=== PATIENT | female | born 1990 | race Caucasian/White ===

== ENCOUNTER 2018-08-26 11:17 | Inpatient (IN) ==
[2018-08-26] MEDS ORDERED: OXYTOCIN 30 UNITS/500 ML BAG IV PRN ×3 (12:22→20:13)
--- NOTE | 2018-08-26 12:29 | History & Physical Report ---
Date of Service August 26, 2018 Assessment & Plan (1) 40 weeks gestation of : fetus category one. Plan pitocin induction. arom as indicated. epidural on demand. anticipate . History of Present Illness Chief Complaint: induction Primary Care Provider: Ivan Patel, DO Patient is a 28yowf with iup at 40 5/7 weeks who presents to labor and delivery for induction of labor. Patient notes some contractions, just tightening. no lof/vb. Losing some mucous. +fm. uncomplicated. labs--A+/ab-/pap neg/ri/rprnr/hepb-/hiv-/gc/ct-/ gtt x 2 nl/panorama low risk male/gbs neg soc--no t/e/d, lives with fob Allergies Allergy/AdvReac Type Severity Reaction Status Date / Time No Known Allergies Allergy Unverified 11/26/15 11:35 Home Medications Home Medications Medication Instructions Recorded Confirmed Type Multivit/Min/Iron/Fol Ac/Pren 1 tab PO DAILY #0 tab 10/17/15 History ( Vitamin) Patient History Medical History History of varicella OB History g1--12/10, , 7#12 oz, no issues [employer] History no stds, no abnl paps Review of Systems All systems reviewed & are unremarkable except as noted in HPI & below Physical Exam Constitutional: WD/WN, vitals as above Gastrointestinal (Abdomen): soft, gravid, nt Genitourinary: cx--3/50/-2/mid/mod efm--135 with mod variability, accels to 160s, no decels toco--leydi Results & Data Vital Signs (Past 12 Hours) Vital Signs Temp Pulse Resp BP 08/26/18 12:02 36.7 C 20 08/26/18 12:01 81 122/71
[2018-08-26 12:48] LABS: Hematocrit (blood only) 33.6 % (37-47); Hemoglobin 11.3 g/dL (12.0-16.0); Mean Corpuscular Volume 85.5 fL (80-100); Mean Platelet Volume 8.6 fL (7.4-10.4); Platelet Count 215 K/uL (130-400); RDW Coefficient of Variation 13.3 % (11.5-14.5); RDW Standard Deviation 41.1 fL (36.4-46.3); Red Blood Count 3.93 M/uL (4.2-5.4); White Blood Count 13.38 K/uL (4.8-10.8)
[2018-08-26] MEDS: LACTATED RINGER'S 1,000 ML IV PRN ×2 (12:57→16:55)
[2018-08-26 13:03] LABS: Mean Corpuscular Hgb Conc 33.6 g/dL (32-36)
--- NOTE | 2018-08-26 16:32 | Labor Progress Brief Note ---
Date of Service August 26, 2018 Subjective GEtting uncomfortable Assessment & Plan (1) 40 weeks gestation of : I suspect response is from hyperstim. Once recussicitation done, fetus recovered and appearing category one at this point. Will get epidural and then reevaluate need for pitocin. Physical Exam Constitutional: WD/WN, vitals as above Genitourinary: cx--4/75/-2 arom--copious, thin, slightly green tinged toco--q1-2min, periods of hyperstim, pit was at 8 and now off efm--140s wtih mod variaiblity, + accels, +scalp stim, fse placed, during periods of hyperstim fetus did have some response with lates and resolved with d/c pit, position change, oxygen Results & Data Vital Signs (Past 12 Hours) Vital Signs Temp Pulse Resp BP 08/26/18 14:50 78 111/60 08/26/18 14:19 72 120/69 08/26/18 13:27 75 120/68 08/26/18 12:24 36.7 C 20 08/26/18 12:02 36.7 C 20 08/26/18 12:01 81 122/71
[2018-08-26] MEDS ORDERED: ePHEDrine sulfate 50 MG/ML AMP ONE (16:35)
[2018-08-26] MEDS ORDERED: BUPIVACAINE 0.25% 30 ML VIAL ONE (16:35)
[2018-08-26] MEDS ORDERED: fentaNYL citrate 100 MCG/2 ML VIAL ONE (16:36)
[2018-08-26] MEDS ORDERED: fentaNYL 2MCG/ML ROPIV 1.25MG/ML 100 ML BAG EPI ONE (16:36)
--- NOTE | 2018-08-26 16:59 | Communication Note ---
Date of Service: August 26, 2018 baby now category one with accels, contractions have spaced some. Getting epidural.
--- NOTE | 2018-08-26 17:11 | Anesthesiology Consultation ---
Date of Service August 26, 2018 Assessment & Plan Chart Review Chart Review: Patient NOT seen in Pre Admission Testing and Acceptable Risk for Labor Epidural Consults Requested none ASA ASA2 Proposed Anesthesia Anesthesia Type: Labor Epidural Risk / Benefits Reviewed With: PT / POA / Parent / Guardian, Accepts Plan and Informed Consent Obtained History Height/Weight Height: 5 ft 4 in Weight: 86.183 kg Allergies Allergy/AdvReac Type Severity Reaction Status Date / Time No Known Allergies Allergy Unverified 11/26/15 11:35 Medications Active Medications Generic Name Dose Route Start Last Admin Trade Name Freq PRN Reason Stop Dose Admin Lactated Ringer's 1,000 mls @ 125 mls/hr 08/26/18 12:22 08/26/18 16:55 Lr IV 08/28/18 12:21 125 mls/hr .Q8H PRN Administration L&D Protocol Protocol Oxytocin 30 units in 500 mls @ 0 mls/hr 08/26/18 12:23 08/26/18 16:23 Pitocin IV 08/28/18 12:22 0 units/hr .Q0M PRN 0 mls/hr Labor Induction/Augmentation Titration Protocol 0 UNITS/HR NPO Date Last Intake of Fluids: 08/26/18 Time Last Intake of Fluids: 17:42 Date Last Intake of Solids: 08/26/18 Time Last Intake of Solids: 06:00 Past Medical History Medical History History of varicella Exercise / Class Metabolic Activity III < 4 Walking/Shop/Light housework Past Anesthesia History No Family Hx of Anesthesia Complications History of PONV Hx of Motion Sickness Social History Smoking Status: Former smoker Smoking End Date: 2011 Hx Alcohol Use: No Hx Substance Use: No substance use type: does not use Review of Systems Patient denies history of abnormal bleeding or bleeding disorder. Patient denies active use of anticoagulants other than low dose aspirin. Patient denies numbness, tingling or weakness in lower extremities. Patient denies active symptoms of GERD. Physical Exam Vital Signs Last Vital Signs Temp 36.7 C 08/26/18 12:24 Pulse 80 08/26/18 17:06 Resp 20 08/26/18 12:24 BP 111/60 08/26/18 14:50 Pulse Ox 100 08/26/18 17:06 Constitutional not obese (Gravid uterus) ENMT Mouth: no TMJ abnormality and oral opening not small Thyromental Distance: > or= 3.5 Finger Breadths Mallampati Class: II Neck normal visual inspection; neck extension not limited Respiratory normal respiratory effort Auscultation: lungs clear to auscultation bilaterally Cardiovascular Rate/Rhythm: regular rate and regular rhythm Heart Sounds: no murmur Neurologic moves all extremities Motor/Sensory: no sensory deficit Psychiatric Orientation: alert and oriented x 3 Testing Laboratory Results 08/26/18 12:38
[2018-08-26] MEDS ORDERED: DiphenhydrAMINE HCL 50 MG/ML VIAL IV PRN (17:46)
[2018-08-26] MEDS ORDERED: NALOXONE HCL 1 MG in SODIUM CHLORIDE 0.9% 1000ML 1,000 ML IV PRN (17:46)
[2018-08-26] MEDS ORDERED: fentaNYL 2MCG/ML ROPIV 1.25MG/ML 100 ML BAG EPI PRN (17:46)
[2018-08-26] MEDS ORDERED: NALOXONE HCL 0.4 MG/1 ML VIAL/CARP IV PRN (17:46)
[2018-08-26] MEDS ORDERED: ePHEDrine sulfate 50 MG/ML AMP IV PRN (17:46)
[2018-08-26] MEDS ORDERED: ONDANSETRON INJ 2 MG/ML 2 ML VIAL IV PRN (17:46)
[2018-08-26] MEDS ORDERED: NALBUPHINE HCL INJ 10 MG/ML AMP IV PRN (17:46)
--- NOTE | 2018-08-26 18:40 | Labor Progress Brief Note ---
Date of Service August 26, 2018 Subjective comfortable Assessment & Plan (1) 40 weeks gestation of : fetus category one. will restart pitocin. slow titration. anticipate . Physical Exam Constitutional: WD/WN, vitals as above Genitourinary: cx--5/90/-2 toco--q2-4min efm--130s with mod variability, small accels, no decels, +scalp stim. Results & Data Vital Signs (Past 12 Hours) Vital Signs Temp Pulse Resp BP Pulse Ox 08/26/18 18:35 106 H 99/52 L 08/26/18 18:33 104 H 98/53 L 08/26/18 18:32 100 H 98 08/26/18 18:31 87 107/58 L 08/26/18 18:29 106 H 103/59 L 08/26/18 18:27 115 H 105/56 L 98 08/26/18 18:25 105 H 110/60 08/26/18 18:23 100 H 112/59 L 08/26/18 18:22 103 H 99 08/26/18 18:21 100 H 116/60 08/26/18 18:19 100 H 111/57 L 08/26/18 18:17 102 H 111/62 99 08/26/18 18:15 110 H 110/59 L 08/26/18 18:13 110 H 111/57 L 08/26/18 18:12 103 H 99 08/26/18 18:11 117 H 109/58 L 08/26/18 18:09 112 H 100/54 L 08/26/18 18:07 110 H 124/66 99 08/26/18 18:05 116 H 110/70 08/26/18 18:03 104 H 99/53 L 08/26/18 18:02 110 H 98 08/26/18 18:01 102 H 115/56 L 08/26/18 17:59 91 H 110/57 L 08/26/18 17:57 101 H 108/58 L 98 08/26/18 17:55 93 H 110/59 L 08/26/18 17:53 95 H 113/59 L 08/26/18 17:52 103 H 100 08/26/18 17:51 91 H 121/58 L 08/26/18 17:49 97 H 113/59 L 08/26/18 17:47 92 H 116/57 L 99 08/26/18 17:45 95 H 112/56 L 08/26/18 17:43 89 124/60 08/26/18 17:42 90 99 08/26/18 17:41 92 H 105/51 L 08/26/18 17:39 76 110/61 08/26/18 17:37 73 102/55 L 99 08/26/18 17:36 67 87/54 L 08/26/18 17:33 78 100/53 L 08/26/18 17:32 78 100 08/26/18 17:31 100 H 100/53 L 08/26/18 17:29 76 108/53 L 08/26/18 17:27 71 113/58 L 08/26/18 17:26 80 100 08/26/18 17:23 90 115/66 08/26/18 17:21 86 100 08/26/18 17:16 92 H 100 08/26/18 17:13 95 H 90 08/26/18 17:11 86 131/73 100 08/26/18 17:06 80 100 08/26/18 17:01 82 100 08/26/18 16:56 81 100 08/26/18 16:51 72 100 08/26/18 16:46 76 100 08/26/18 16:41 77 100 08/26/18 16:36 74 100 08/26/18 16:31 74 100 08/26/18 14:50 78 111/60 08/26/18 14:19 72 120/69 08/26/18 13:27 75 120/68 08/26/18 12:24 36.7 C 20 08/26/18 12:02 36.7 C 20 08/26/18 12:01 81 122/71
[2018-08-26 19:58] VITALS: O2SAT 100
[2018-08-26] MEDS ORDERED: OXYCODONE/ACETAMINOPHEN 5mg/325mg TAB PO PRN (20:13)
--- NOTE | 2018-08-26 20:13 | Anesthesia Procedure Note ---
Date of Service August 26, 2018 Anesthesia Post Epidural Note Vital Signs Vital Signs: Temp Pulse Resp BP Pulse Ox 36.9 C 102 H 18 128/58 L 100 08/26/18 19:05 08/26/18 20:08 08/26/18 19:05 08/26/18 20:08 08/26/18 20:02 Notes Mental Status: alert / awake / arousable and participated in evaluation Nausea / Vomiting: adequately controlled Pain: adequately controlled Airway Patency, RR, SpO2: stable & adequate BP & HR: stable & adequate Hydration State: stable & adequate Neuraxial Anesthesia: was administered and sensory block is resolving Anesthetic Complications: no major complications apparent and Pt Satisfied with anesthetic care Epidural: Removed without complications and With tip intact
[2018-08-26] MEDS ORDERED: DIPHTHERIA/TETANUS/PERTUSSIS 0.5 ML SYR/VIAL IM ONE (20:27)
[2018-08-26] MEDS ORDERED: BENZOCAINE 20% AER SPR 82.5 GM CAN EXT PRN (20:27)
[2018-08-26] MEDS ORDERED: SUPERCREAM 0.870% 15 GM JAR EXT PRN (20:27)
[2018-08-26] MEDS ORDERED: HYDROCORTISONE ACETATE 25 MG SUPP PR PRN (20:27)
[2018-08-26] MEDS ORDERED: BISACODYL 10 MG SUPP PR PRN (20:27)
--- NOTE | 2018-08-26 23:39 | Delivery Summary ---
DATE OF OPERATION: 08/26/2018 PREOPERATIVE DIAGNOSIS: Intrauterine at 40+ weeks. POSTOPERATIVE DIAGNOSES: 1. Intrauterine at 40+ weeks. 2. Thin meconium. PROCEDURES: 1. Pitocin augmentation. 2. Amniotomy. 3. FSE placement. 4. Epidural. 5. Normal spontaneous vaginal delivery. 6. Bilateral small vaginal introital laceration with repair. SURGEON: Chichi Terry MD ANESTHESIA: Epidural. ESTIMATED BLOOD LOSS: 350 mL. DESCRIPTION OF PROCEDURE: The patient presented to labor and delivery for induction of labor for postdates. She was found to be 3, 50%, -2. She was started on Pitocin augmentation. After getting to no greater than 8 on Pitocin augmentation, she had runs of hyperstimulation with resultant change in heart rate with the baby, so Pitocin was stopped at this point in time. She underwent amniotomy for copious amounts of very thin green meconium stained fluid and a scalp electrode was placed. Once Pitocin was discontinued and the contractions spaced a bit, the baby's heart rate was into a category 1 strip. She underwent an epidural anesthetic and then was found to be 5, 90%, -2. She got just a little bit of Pitocin at 1 milliunit and progressed rapidly to complete-complete and +2 to 3 station. She pushed over 2 contractions to deliver a viable male infant in AVERY presentation. There was no nuchal cord. The nose and mouth were bulb suctioned. The rest of the was then delivered without difficulty. The nose and mouth were again bulb suctioned. The baby was stimulated, placed on maternal abdomen for drying and attention. Cord was clamped and cut at 1 minute of life. Cord blood and segment were obtained. Placenta was delivered spontaneously intact with a 3-vessel cord. Cervix, sulci, rectum and perineum were examined and found to be intact. Two small vaginal introital lacerations were repaired with 3-0 Vicryl and hemostasis was accomplished with dilute Pitocin and fundal massage. Estimated blood loss 350 mL Apgars pending. Mother and baby doing well at the end of the delivery. I attest to the content of the Intraoperative Record and any orders documented therein. Any exception s are noted below.
[2018-08-27] MEDS: IBUPROFEN 600 MG TAB PO PRN ×5 (02:36→21:15)
[2018-08-27 06:49] LABS: Hemoglobin 10.2 g/dL (12.0-16.0)
[2018-08-27] MEDS ORDERED: PRENATAL VITAMIN 1 TAB PO SCH (08:00)
--- NOTE | 2018-08-27 08:11 | Obstetrical Progress Note ---
Date of Service August 27, 2018 Assessment & Plan (1) Vaginal delivery: Doing well. routine care. Day #:: 1 Subjective Ambulation: ambulating normally Voiding: no voiding problems Passing Gas:: Yes Diet Tolerance:: regular diet Lochia:: Small Feeding Type:: bottle feeding Doing well. Physical Exam Constitutional WD/WN, vitals as above Cardiovascular Extremities: no calf tenderness and no edema Gastrointestinal (Abdomen) soft, nt, nd fundus firm, nt at u Results & Data Vital Signs (Past 12 Hours) Vital Signs Temp Pulse Pulse Resp BP BP 08/27/18 07:53 36.8 C 73 20 106/68 08/27/18 03:00 37.1 C 89 18 122/76 08/26/18 23:40 37.2 C 96 H 18 113/71 08/26/18 22:08 37.0 C 97 H 18 122/61 08/26/18 21:53 96 H 119/61 08/26/18 21:38 118 H 16 116/58 L 08/26/18 21:23 111 H 125/63 08/26/18 21:08 117 H 20 118/57 L 08/26/18 20:56 122 H 123/58 L 08/26/18 20:55 129 H 18 158/76 H 08/26/18 20:38 115 H 18 120/58 L 08/26/18 20:23 120 H 20 130/59 L
[2018-08-27] MEDS: DOCUSATE SODIUM 100 MG CAP PO SCH ×3 (08:28→21:15)
[2018-08-27] MEDS: ACETAMINOPHEN 325 MG TAB PO PRN ×2 (08:29→14:51)
[2018-08-27] MEDS ORDERED: BISACODYL 5 MG TABEC PO SCH ×2 (18:45→20:00)
[2018-08-28] MEDS: IBUPROFEN 600 MG TAB PO PRN ×3 (05:15→08:57)
--- NOTE | 2018-08-28 06:40 | Obstetrical Progress Note ---
Date of Service August 28, 2018 Assessment & Plan (1) Vaginal delivery: Present on Admission?: No (2) Encounter for care and examination after delivery: satisfactory exam continue current care plan discharge to home follow up in 6 weeks. Present on Admission?: No Day #:: 2 Subjective Ambulation: ambulating normally Voiding: no voiding problems Passing Gas:: Yes Diet Tolerance:: regular diet Lochia:: Small Feeding Type:: bottle feeding Review of Systems All systems reviewed & are unremarkable except as noted in HPI & below Physical Exam Constitutional WD/WN, vitals as above Gastrointestinal (Abdomen) normal bowel sounds, soft, nontender, no hepatosplenomegaly Musculoskeletal no cyanosis or clubbing, extremities motor strength 5/5 no calf tenderness Genitourinary OB Exam Abdomen: + fundal height Fundus: + firm and + relation to umbilicus (2 below U) Results & Data Vital Signs (Past 12 Hours) Vital Signs Temp Pulse Resp BP 08/27/18 20:00 37.0 C 72 18 117/74
[2018-08-28 09:28] VITALS: BP 119/71; PULSE 71; TEMP 98.1
== END 2018-08-28 10:38 | disposition home or self-care (01) | DRG 807 ==
LOC: 4S1 11:52 → 4S2 22:45
DX: Z3A.40 40 weeks gestation of pregnancy; O70.0 First degree perineal laceration during delivery; O48.0 Post-term pregnancy; Z37.0 Single live birth